=== PATIENT | female | born 1990 | race Caucasian/White ===

== ENCOUNTER 2016-10-06 11:00 | Outpatient (RCR) | payer OTHER ==
[~2016-10-06 11:00] MED LIST: FLEXERIL 1010 MG/TAB PO; IBU600 MG PO; ULTRAM 50MG TAB50 MG PO
== END 2016-10-21 11:17 | disposition home or self-care (01) ==
LOC: WSPT 11:00
DX: M54.5 Low back pain (principal); M25.561 Pain in right knee; M25.562 Pain in left knee
CPT/HCPCS: G0283-GP

== ENCOUNTER 2016-12-24 09:15 | Outpatient (RCR) | payer OTHER | END 2016-12-25 12:55 | disposition home or self-care (01) | LOC: WSPT 09:15 | DX: M25.562 Pain in left knee (principal); M25.561 Pain in right knee; M54.5 Low back pain ==